=== PATIENT | male | born 1980 | race Caucasian/White ===

== ENCOUNTER 2019-03-13 16:37 | Observation (INO) | payer MEDICARE, OTHER ==
[~2019-03-13] VITALS: Ht 177.8 cm; Wt 99.6 kg
[2019-03-13] VITALS (29 sets, daily range): BP systolic 104–136; BP diastolic 63–86; PULSE 71–98; RESP 16–20; Ht 177.8 cm; Wt 99.6 kg
[2019-03-13] MEDS ORDERED: SEVOFLURANE 15 MIN ONE (17:00)
[2019-03-13] MEDS ORDERED: PROPOFOL 20 ML ONE (17:26)
[2019-03-13] MEDS ORDERED: MIDAZOLAM 1 MG/ML 2 ML INJ ONE (17:26)
[2019-03-13] MEDS ORDERED: ROCURONIUM 50 MG INJ ONE (17:26)
[2019-03-13] MEDS ORDERED: CEFAZOLIN 1 GM INJ ONE (17:26)
[2019-03-13] MEDS ORDERED: FENTAnyl 50 MCG/ML VIAL ONE ×2 (17:26→18:03)
[2019-03-13] MEDS ORDERED: LIDOCAINE 1%/EPI (1:100,000) (MDV) 20 ML ONE (17:30)
[2019-03-13] MEDS ORDERED: COCAINE 4% 4 ML TOP ONE ×2 (17:31→18:35)
[2019-03-13] MEDS ORDERED: BACITRACIN/POLYMYXIN 28.35 GM OINT TOP ONE (17:31)
[2019-03-13] MEDS ORDERED: EPINEPHrine 1 MG INJ ONE (17:31)
--- NOTE | 2019-03-13 17:40 | PREAC ---
Date/Time of Note Date/Time of Note DATE: 03/13/19 TIME: 17:38 Anesthesia Eval and Record Evaluation Time Pre-Procedure Interview DATE: 03/13/19 TIME: 17:38 Age 38 Sex male NPO: 8 hrs Preoperative diagnosis Deviated Septum Planned procedure Septoplasty and subcutaneous resection of inferior turbinate Past Medical History Past Medical History: None Surgery & Anesthesia Issues No known issue Meds Anticoagulation: No Beta Analilia within 24 hr: No Reason Beta Analilia not given: Pt. not on B-Analilia Meds reviewed: Yes Allergies Coded Allergies: Penicillins (Verified Allergy, Intermediate, rash, 03/13/19) Allergies Reviewed: Yes Labs/Studies Labs Reviewed: Reviewed by anesthesiologist test: N/A Studies: ECG (n/a), CXR (n/a) Pre-procedure Exam Airway: Adequate mouth opening, Adequate thyromental dist Mallampati: Mallampati II Teeth: Normal Lung: Normal Heart: Normal ASA Physical Status ASA physical status: 2 Emergency: None Planned Anesthetic General/MAC: ETT Planned Pain Management Parenteral pain med Pre-operative Attestations Prior to commencing anesthesia and surgery, the patient was re-evaluated, there was verification of: *The patient's identity *The results of appropriate recent lab work and preoperative vital signs *The above evaluation not changing prior to induction *Anesthetic plan, risk benefits, alternative and complications discussed with patient/family; questions answered; patient/family understands, accepts and wishes to proceed. CARLOS HALL MD Mar 13, 2019 17:40
[2019-03-13] MEDS ORDERED: LABETALOL HCL 20MG INJ ONE (17:53)
--- NOTE | 2019-03-13 17:54 | HPN ---
Date/Time of Note Date/Time of Note DATE: 03/13/19 TIME: 17:54 Interval H&P Admission Note Pt. seen H&P reviewed: No system changes SARAH MAS MD Mar 13, 2019 17:54
[2019-03-13] MEDS ORDERED: METOCLOPRAMIDE 10 MG INJ IV PRN (18:00)
[2019-03-13] MEDS ORDERED: MEPERIDINE 25 MG INJ IV PRN (18:00)
[2019-03-13] MEDS ORDERED: HYDROmorphONE 1 MG/5 ML IV SYRINGE IV PRN ×3 (18:00)
[2019-03-13] MEDS ORDERED: LABETALOL HCL 20MG INJ IV PRN (18:00)
[2019-03-13] MEDS ORDERED: OXYCODONE/ACETAMINOPHEN (5/325) TAB PO PRN ×2 (18:00)
[2019-03-13] MEDS ORDERED: FENTAnyl 50 MCG/ML VIAL IV PRN ×3 (18:00)
[2019-03-13] MEDS ORDERED: EPHEDrine SULFATE 50 MG/5 ML SYG IV PRN (18:00)
[2019-03-13] MEDS ORDERED: hydrALAzine 20 MG INJ IV PRN (18:00)
[2019-03-13] MEDS ORDERED: DIPHENHYDRAMINE 50 MG INJ IV PRN (18:00)
[2019-03-13] MEDS ORDERED: ONDANSETRON 4 MG INJ IV PRN (18:00)
[2019-03-13] MEDS ORDERED: hydrALAzine 20 MG INJ ONE (18:03)
[2019-03-13] MEDS ORDERED: DEXAMETHASONE 4 MG/ML 5 ML INJ ONE (18:19)
[2019-03-13] MEDS ORDERED: METOCLOPRAMIDE 10 MG INJ ONE (18:19)
[2019-03-13] MEDS ORDERED: ONDANSETRON 4 MG INJ ONE (18:19)
[2019-03-13] MEDS ORDERED: KETOROLAC 30 MG INJ ONE (18:20)
[2019-03-13] MEDS ORDERED: SUGAMMADEX SODIUM 200 MG/2 ML VIAL IV ONE (18:20)
--- NOTE | 2019-03-13 18:25 | OPR ---
Date/Time of Note Date/Time of Note DATE: 03/13/19 TIME: 18:23 Operative Report Procedure Date: Mar 13, 2019 Preoperative Diagnosis DNS, ITH Postoperative Diagnosis Same Operation/Procedure Performed Septoplasty, submucous resection of inferior turbinates. Surgeon see signature line Enterprise Manager None Anesthesia Type: general Estimated Blood Loss: 10 - 50 ml's Transfusion none Specimen None Grafts/Implants none Complications none Pt Condition Post Procedure: stable Disposition: PACU Indications Nasal congestion. Findings. Left deviation of septum, caudal fracture. Procedure Description Description of procedure: The patient was identified in the holding area. We had a discussion to confirm understanding of all indications risks benefits alternatives and postoperative care associated with the operation. The patient signed informed consent was taken to the operating room. The patient was laid supine on the operating room table and general anesthesia was achieved without difficulty. The face was draped in sterile fashion and the nose was packed with 4% cocaine pledgets. The nasal septum was infiltrated with 5 cc of 1% lidocaine with epinephrine in the submucoperiosteal plane bilaterally. A left sided [place] incision was made and submucoperichondreal flaps were raised. The bony cartilaginous junction of the septum was identified and entered. A deviated segments of bone and cartilage were isolated. A double- action scissor was used to transect the bony deviated segment of the skull base after which a Radha forcep was used to resect deviated segment of bone and cartilage. Care was taken to avoid excess cartilaginous resection. The fractures septum was resected. This was caudal and not significant for dorsal support. The flaps were returned to normal position and anterior rhinoscopy reveals midline septum. At this point the right inferior turbinate was medialized with a [place] elevator. The Coblation wand on a setting of 6 was used to enter the turbinate in the inferior medial submucosal compartment. 10 seconds of Coblation were performed at the 3rd 2nd and 1st mccormick after which the turbinate was crushed laterally into the lateral nasal wall with a [place] elevator. The contralateral turbinate was addressed in similar fashion to complete the bilateral submucous resection and lateral fracturing of the inferior turbinates. Septal flaps were replaced. A Merocel pack was placed on each side. The patient was awakened, extubated and taken to the PACU in stable condition. Complications: None. SARAH MAS MD Mar 13, 2019 18:25
--- NOTE | 2019-03-13 18:29 | PDOCDIS ---
Discharge Instructions CONDITION [id number] Patient Condition: [id number] Good HOME CARE INSTRUCTIONS: [id number] Diet Instructions: Blugz3m Regular ACTIVITY: [id number] Activity Restrictions: Ybqmc7m No Restrictions [id number] Bathing Restrictions: Pzjzh7f Shower FOLLOW UP/APPOINTMENTS Follow-up Plan 1230 pm [facility] office. SCHOOL/WORK RELEASE May return to School/Work on: March 16, 2019 May return to School/Work with: No Restrictions SARAH MAS MD Mar 13, 2019 18:29
[2019-03-13] MEDS ORDERED: IBUPROFEN 600 MG TAB PO PRN (18:30)
[2019-03-13] MEDS ORDERED: BACITRACIN/POLYMYXIN 0.9 GM OINT TOP ONE (18:35)
[2019-03-13] MEDS ORDERED: LIDOCAINE 1%/EPI (1:100,000) (MDV) 20 ML INJ ONE (18:35)
--- NOTE | 2019-03-13 18:38 | PAC ---
Date/Time of Note Date/Time of Note DATE: 03/13/19 TIME: 18:38 Post-Anesthesia Notes Post-Anesthesia Note Last documented vital signs T:98.0 Activity: WNL Respiratory function: WNL Cardiovascular function: WNL Mental status: Baseline Pain reasonably controlled: Yes Hydration appropriate: Yes Nausea/Vomiting absent: Yes CARLOS HALL MD Mar 13, 2019 18:38
[2019-03-13] MEDS ORDERED: LACTATED RINGER'S 1,000 ML IV SCH (19:30)
[2019-03-14 00:47] VITALS: BP 117/67; PULSE 68; RESP 18
[2019-03-14] MEDS: ACETAMINOPHEN 325 MG TAB PO PRN ×2 (06:27→14:03)
[2019-03-14 07:56] VITALS: BP 111/63; PULSE 69; RESP 18
== END 2019-03-14 16:20 | disposition home or self-care (01) ==
LOC: SDS 16:37 → REC 19:42 → MS1 21:02
PROVIDERS: ADMIT Otolaryngology; ATTEND Otolaryngology
DX: J34.2 Deviated nasal septum (principal); J34.3 Hypertrophy of nasal turbinates
CPT/HCPCS: 30140; 30520; G0378; J0360; J0690; J1100; J1885; J2250; J2405; J2765; J3010; J0171